=== PATIENT | female | born 1975 | race Caucasian/White ===

== ENCOUNTER 2021-09-06 09:28 | Observation (INO) | payer OTHER ==
[~2021-09-06] VITALS: Ht 170.2 cm; Wt 91.0 kg
[2021-09-06 09:20] VITALS: BP 138/85
--- NOTE | 2021-09-06 10:02 | PDOC2 ---
ANISH LOPEZ BOUNTY TRAPPER 09/06/21 1002: CONSULT Date of Consult Date of Consult DATE: 09/06/21 TIME: 09:58 Reason for Consult Reason for Consult: appendicitis Referring Physician Referring Physician: ER Identification/Chief Complaint Chief Complaint abdominal pain Source Source: Chart review, Patient History of Present Illness Reason for Visit: Admitted with RLQ abdominal pain since Friday. Associated nausea, emesis and diarrhea. Some improvement in pain with medication Past Medical History Cardiovascular: HTN, Hyperlipidemia Pulmonary: COPD Psych: Anxiety, Depression Past Surgical History Past Surgical History: Cholecystectomy, Hysterectomy Family History Family History: Other (noncontributuroy to current illness ) Social History No ALCOHOL: other (frequently weekly intake ) Allergies Allergies: Coded Allergies: acetaminophen (Verified Adverse Reaction, Intermediate, Nausea and Vomiting, 09/06/21) ibuprofen (Verified Adverse Reaction, Intermediate, Nausea and Vomiting, 09/06/21) ROS General: No: Chills, Fatigue PSYCHOLOGICAL ROS: No: Anxiety, Depression Eyes: No Blurry vision, No Double vision HEENT: No: Heacaches, Sore Throat Hematological and Lymphatic: No: Bleeding Problems, Blood Clots Respiratory: No: Cough, SOB with excertion Cardiovascular: No Chest Pain, No Palpitations Gastrointestinal: Yes Other (see hpi) Genitourinary: No Dysuria, No Hematuria Musculoskeletal: No Joint Pain, No Muscle Pain Neurological: No Impaired Coord/balance, No Numbness/Tingling Skin: No Pruritus, No Rash Physical Exam General: Alert, Oriented X3, Cooperative HEENT: Atraumatic, PERRLA Lungs: Clear to auscultation, Normal air movement Heart: Regular rate, Normal S1, Normal S2 Abdomen: Soft, Other (mild ttp RLQ) Extremities: No clubbing, No cyanosis Skin: No rashes, No breakdown Neuro: Normal gait, Normal speech Psych/Mental Status: Mental status NL, Mood NL MUSCULOSKELETAL: No deformity, No swelling Assessment/Plan Assessment/Plan acute appendicitis plan JOHN Hector MD 09/06/21 1139: CONSULT Assessment/Plan Assessment/Plan The patient was seen and evaluated by myself; the patient is a 45-year-old female who reported to the emergency department at [facility] due to abdominal pain. The pain began 2 nights ago and was located in the right lower quadrant. The pain has remained persistent since then. She describes the pain as sharp and nonradiating. She has associated nausea and vomiting. She denies any fever chills or change in bowel or bladder function. The emergency room evaluation was consistent with acute appendicitis. PMH/PSH/ROS/SH as above; exam: alert, oriented, no distress, lungs clear, heart RR and R, abdomen obese, soft, tender with palpation in RLQ, ext neg for edema, no deformities; A/P) RLQ pain, suspect appendicitis, plan to OR for appendectomy ANISH LOPEZ APRN September 06, 2021 10:02 JOHN PENA MD September 06, 2021 11:39
[2021-09-06] MEDS ORDERED: PROCHLORPERAZINE 10 MG/2 ML VIAL. IVP PRN (10:45)
[2021-09-06] MEDS ORDERED: HYDROmorphone 2 MG/ML INJ. IVP PRN (10:45)
[2021-09-06] MEDS ORDERED: fentaNYL PF VIAL 100 MCG/2 ML VIAL IVP PRN ×2 (10:45)
[2021-09-06] MEDS ORDERED: ONDANSETRON PF 4 MG/2 ML VIAL. ONE (10:51)
[2021-09-06] MEDS ORDERED: SEVOFLURANE 61 TO 120 MINUTES. IH ONE (10:51)
[2021-09-06] MEDS ORDERED: LIDOCAINE 2% PF 5 ML VIAL. ONE (10:51)
[2021-09-06] MEDS ORDERED: DEXAMETHASONE SOD PHOS 4 MG/ML VIAL ONE (10:51)
[2021-09-06] MEDS ORDERED: PROPOFOL 10 MG/ML (20ML) VIAL. IV ONE (10:51)
[2021-09-06] MEDS ORDERED: MIDAZOLAM HCL/PF 2 MG/2 ML VIAL. ONE (10:52)
[2021-09-06] MEDS ORDERED: ROCURONIUM 50 MG/5 ML VIAL. ONE (10:52)
[2021-09-06] MEDS ORDERED: SCOPOLAMINE 1.5MG PATCH. TD ONE (11:00)
[2021-09-06] MEDS ORDERED: ALBUTEROL SULFATE 2.5 MG/3 ML NEBU. NEB ONE (11:00)
[2021-09-06] MEDS: IV RINGERS,LACTATED 1000ML 1,000 ML IV SCH ×2 (11:06→13:40)
[2021-09-06] MEDS ORDERED: SUCCINYLCHOLINE 200 MG/10 ML VIAL. ONE (11:24)
[2021-09-06] MEDS ORDERED: BUPIVACAINE-EPI 0.5% 30 ML VIAL KIT. ONE (11:49)
[2021-09-06] MEDS ORDERED: PHENYLEPHRINE in 0.9% NACL PF 1 MG/10 ML SYRINGE. IV ONE (11:53)
[2021-09-06] MEDS ORDERED: fentaNYL PF VIAL 100 MCG/2 ML VIAL ONE (12:11)
[2021-09-06] MEDS ORDERED: INSULIN LISPRO 100 UNIT/ML 3ML VIAL for OP,RR ONLY. SQ PRN (12:15)
[2021-09-06] MEDS ORDERED: NEOSTIGMINE METHYLSULFATE 5 MG/5 ML SYRINGE. ONE (12:20)
--- NOTE | 2021-09-06 12:34 | PDOC4 ---
Operative Note Operative Note Preoperative Diagnosis: Acute Appendicitis Postoperative Diagnosis: Same Procedure: Laparoscopic appendectomy Surgeon: Tarik Anesthesia: Gen. EBL: 10 mL Specimen: Appendix to pathology Drains: None Complications: None Indication: The patient is a 45 year old female who reported to the emergency department with abdominal pain. The evaluation is consistent with acute appendicitis. The patient was offered surgical treatment with a laparoscopic appendectomy. The risks of surgery were discussed which include bleeding, infection, visceral injury, pain, anesthetic risk, potential need for additional surgery or procedure. The patient understands and would like to proceed. Description: The patient was taken to the operating room and placed supine on the operating table. Gen. anesthesia was performed. The abdomen was prepped with ChloraPrep and draped in a standard surgical manner. A supraumbilical incision was made through which a veress needle was inserted and a pneumoperitoneum was created. A visualized 5 mm trocar was inserted and the laparoscope was intr oduced. In the left lower quadrant a 5 mm trocar was inserted. In the suprapubic region a 12 mm trocar was inserted. The appendix was identified and appeared inflamed consistent with acute appendicitis. There was no clear evidence of perforation or periappendiceal abscess. The mesoappendix was bluntly from the appendix. The mesoappendix was controlled using several clips and it was divided. The appendix was then amputated off the cecum using an Endo GRISELDA 45 stapling device. The appendix was then placed in an endoscopic bag and extracted at the suprapubic incision site. The fascia there was closed with 0 Vicryl and infiltrated with half percent Marcaine with epinephrine. The RLQ was visualized and the staple line appeared well intact and hemostasis was good. No other abnormalities were identified grossly. The remaining ports were removed and the pneumoperitoneum was relieved. The skin at all incision sites was closed with 4-0 Monocryl. Steri-Strips and dressings were applied. The patient tolerated the procedure well and was sent to the recovery room in stable condition. At the end of the case all counts were correct. JOHN PENA MD September 06, 2021 12:34
[2021-09-06] MEDS ORDERED: oxyCODONE/APAP 5/325 1 TAB TABLET PO PRN ×2 (12:45)
[2021-09-06] MEDS: MORPHINE SULFATE 2 MG/ML INJ. IVP PRN ×3 (13:21→22:40)
[2021-09-06 15:00] VITALS: BP 138/83
[2021-09-06] MEDS ORDERED: DIPH25CA58 PO (15:00)
[2021-09-06] MEDS ORDERED: CHOL4POW11 PO (15:00)
[2021-09-06] MEDS ORDERED: ALPR1TAB6 PO (15:00)
[2021-09-06] MEDS ORDERED: LANS30CA PO (15:00)
[2021-09-06] MEDS ORDERED: QUET400T7 PO (15:00)
[2021-09-06] MEDS ORDERED: BUDE10.26 IH (15:00)
[2021-09-06] MEDS ORDERED: HYDR-2769 PO (15:00)
[2021-09-06] MEDS ORDERED: TIZA-75 PO (15:00)
[2021-09-06] MEDS ORDERED: NICO1PAT25 TP (15:00)
[2021-09-06] MEDS ORDERED: GABA-689 PO (15:00)
[2021-09-06] MEDS ORDERED: LORA10TA3 PO (15:00)
[2021-09-06] MEDS ORDERED: ALBU2.5V14 NEB (15:00)
[2021-09-06] MEDS ORDERED: HYDR25TA PO (15:00)
[2021-09-06] MEDS ORDERED: IPRA3AMP29 NEB (15:00)
[2021-09-06] MEDS ORDERED: ONDANSETRON PF 4 MG/2 ML VIAL. IVP PRN (16:00)
[2021-09-06] MEDS ORDERED: DEXTROSE 50% 25 GM / 50ML DISP.SYRIN. IV PRN (16:15)
[2021-09-06] MEDS: IV DEXTROSE 5 %-0.45 % NACL 1,000 ML IV SCH (16:40)
[2021-09-06] MEDS: INSULIN LISPRO 300 UNITS/3 ML VIAL. SQ SCH (17:00)
[2021-09-06 19:00] VITALS: BP 121/66
[2021-09-06 23:00] VITALS: BP 121/69
[2021-09-07] MEDS: IV DEXTROSE 5 %-0.45 % NACL 1,000 ML IV SCH (01:13)
--- NOTE | 2021-09-07 01:30 | NUR ---
2 bottles of pills were taken from patient's room, she had them in her backpack. One was a bottle of "allergy relief" which was placed in patient's bin with a patient label, and the other was sent to pharmacy to be identified as it was a large bottle of mixed pills.
[2021-09-07 03:00] VITALS: BP 129/69
[2021-09-07 07:00] VITALS: BP 118/56
[2021-09-07] MEDS: INSULIN LISPRO 300 UNITS/3 ML VIAL. SQ SCH (08:00)
--- NOTE | 2021-09-07 09:31 | PDOC ---
SURGICAL PROGRESS NOTE DATE: 09/07/21 TIME: 09:30 Subjective tolerating clears sore but overall improved Vital Signs Vital Signs Date Time Temp Pulse Resp B/P (MAP) Pulse Ox O2 Delivery O2 Flow Rate FiO2 09/07/21 08:00 Room Air 09/07/21 07:00 97.8 76 18 118/56 (76) 100 97.8 09/06/21 23:00 2.0 I&O Intake and Output 09/07/21 07:00 Intake Total 1000 ml Output Total 140 ml Balance 860 ml Intake IV Total 1000 ml Output Urine Total 130 ml Estimated Blood Loss 10 ml # Voids 4 General: Alert, Oriented X3, Cooperative Abdomen: Soft, Other (lap dressings dry) Labs Laboratory Tests Test 09/06/21 09:47 09/06/21 11:04 09/06/21 12:48 09/06/21 14:14 Glucose (Fingerstick) 107 mg/dL (70-99) 96 mg/dL (70-99) 125 mg/dL (70-99) 136 mg/dL (70-99) Test 09/06/21 21:08 09/07/21 03:39 09/07/21 09:22 Glucose (Fingerstick) 174 mg/dL (70-99) 139 mg/dL (70-99) 140 mg/dL (70-99) Laboratory Tests Test 09/06/21 09:47 09/06/21 11:04 09/06/21 12:48 09/06/21 14:14 Glucose (Fingerstick) 107 mg/dL (70-99) 96 mg/dL (70-99) 125 mg/dL (70-99) 136 mg/dL (70-99) Test 09/06/21 21:08 09/07/21 03:39 09/07/21 09:22 Glucose (Fingerstick) 174 mg/dL (70-99) 139 mg/dL (70-99) 140 mg/dL (70-99) Assessment/Plan s/p appy ok to dc home FU 2 weeks Justicifation of Admission Dx: Justifications for Admission: Justification of Admission Dx: Yes Comments: appendicitis ANISH LOPEZ VINYL CUTTER September 07, 2021 09:31
[2021-09-07] MEDS ORDERED: OXYC1TAB15 PO (09:35)
--- NOTE | 2021-09-07 09:48 | HP ---
DATE OF SERVICE: 09/07/2021 ADMIT DATE: 09/06/2021 HISTORY OF PRESENT ILLNESS: The patient is a 45-year-old female patient who presented to the Emergency Room of [facility] with a complaint of abdominal pain that started generalized and localized to the right lower quadrant. There is no history of bad food intake. No history of fever or chills. No history of trauma or recent travel. The patient has not had the flu vaccination and has not been vaccinated against COVID. She was extensively investigated in the Emergency Room of [facility], has had lab work as well as imaging studies. Her lab works were mostly unremarkable. Urinalysis was also unremarkable. Toxic screen was positive actually for cannabinoid. She did have CT scan of the abdomen and pelvis, which showed mild acute appendicitis, hepatomegaly and there is partially exophytic round soft tissue density in the left kidney that is incompletely characterized. Therefore, the patient was transferred to [facility], kept n.p.o., continued on IV fluid and pain medication, antiemetic and we consulted the surgical team. PAST MEDICAL HISTORY: Significant for type 2 diabetes mellitus, rheumatoid arthritis, chronic obstructive pulmonary disease, fibromyalgia, depression and anxiety. She is legally blind. PAST SURGICAL HISTORY: Significant for cholecystectomy, hysterectomy and she has also had a unilateral left oophorectomy. ALLERGIES: SHE IS ALLERGIC TO IBUPROFEN AND ACETAMINOPHEN. MEDICATIONS: She is currently on diphenhydramine 25 mg twice a day, loratadine 10 mg a day, ipratropium bromide, albuterol sulfate in 3 mL by nebulizer 4 times, albuterol sulfate 1 vial nebulizer every 6 hours, tizanidine 4 mg every 6 hours, nicotine patch, Nicoderm 14 mg transdermally once a day, cholestyramine 5 grams powder twice a day, hydrocodone/APAP 10/325 one tablet every 6 hours, gabapentin 400 mg 3 times a day, quetiapine fumarate 400 mg at bedtime, alprazolam 1 mg every 6 hours, hydroxyzine 25 mg once a day. She is on Symbicort 160/4.5 mcg inhaler 2 puffs twice a day and lansoprazole 30 mg once a day. FAMILY HISTORY: Noncontributory. SOCIAL HISTORY: She is , lives alone, has a caregiver. Her children are grown up. She continues to smoke. Does not drink alcohol or recreational drugs. She is blind. PHYSICAL EXAMINATION: GENERAL: On arrival to the Emergency Room, she looked well and was clearly in no apparent respiratory distress. No pallor, jaundice, cyanosis or thyromegaly. No jugular venous distention. No limb edema. VITAL SIGNS: Her heart rate was 73, blood pressure was 140/92, temperature was 97.8, respiratory rate was 18 and oxygen saturation was 97%. HEAD, EYES, EARS, NOSE AND THROAT: Normocephalic, atraumatic. NECK: Supple. HEART: Showed normal first and second heart sounds. No gallop or murmur. CHEST: Clear to auscultation. No crepitation or rhonchi. ABDOMEN: No guarding or rigidity. No organomegaly. All hernial orifice intact. Bowel sounds normal. Her abdomen was distended, soft. Tenderness mostly in the right lower quadrant. NEUROLOGIC: She is blind, but otherwise all other cranial nerves are intact. She moves extremities without difficulty. She ambulates without assistance or assistive devices while at home. She uses a cane when she goes outside. LABORATORY DATA: Her lab work on arrival to the Emergency Room showed a white cell count of 9.9, hemoglobin 14, hematocrit 40, MCV 93, and platelet count 279,000 with a manual differential of 57% polymorphs, 35% lymphocytes and 5% monocytes. Serum sodium 136, potassium 4.2, chloride 100, bicarbonate 26, anion gap of 10, BUN 16, creatinine 0.8. Estimated GFR 77 mL per minute. Her glucose 120, calcium 9.3. Total bilirubin, AST, ALT, alkaline phosphatase were normal. Her CK was 91. Total protein 7.7, albumin was 4.7. Amylase 45, lipase 173. Her prothrombin time, INR and APTT normal. Urinalysis essentially unremarkable and toxic screen was positive for cannabinoids. Her influenza A and B were negative. Her coronavirus by rapid antigen testing and by PCR both negative. CT scan of the abdomen and pelvis showed that she has mild acute appendicitis. ASSESSMENT AND PLAN: The patient was admitted to [facility]. She was kept n.p.o. She did receive IV Zosyn while in the Emergency Room of [facility]. However, she is afebrile and her white cell count was normal and according to the surgical team, there was no evidence of any peritonitis. [facility] DR: Savanna TID: [id number]
[2021-09-07 11:00] VITALS: BP 115/68
--- NOTE | 2021-09-07 12:08 | NUR ---
Discharge Note: JUAN JOSE OMNTERROSO Discharge instructions and discharge home medications reviewed with Patient and a copy given. All questions have been answered and understanding verbalized. The following instructions and handouts were given: information about medications, activity, surgical incision care, follow up appointments, diet. Discontinued lines and drains: IV line in left upper arm removed, catheter tip intact. Patient discharged to home with self care with family member, wheelchair used for mobility to discharge vehicle.
--- NOTE | 2021-09-11 07:46 | PATHOLOGY ---
[facility] Accession Number: [id number] . 01 Material submitted: . appendix - APPENDIX . 01 Clinical history: . LAP APPY ACUTE APPENDICITIS . 02 Diagnosis: Appendix, laparoscopic appendectomy: - Acute and chronic appendicitis with focal serosal exudate. - Diverticulum of distal appendiceal tip. . (JPM:mm; 09/10/2021) [facility] 09/10/2021 1135 Local . 02 Comment: There is no evidence of rupture. . (JPM:mml; 09/10/2021) . 02 Electronically signed: . Britton Field MD, Pathologist NPI- [id number] . 01 Gross description: . Fixative: Formalin Labeled: Appendix Perforation: Intact Appendix size: 5.5 cm in length by up to 1.1 cm in diameter Mesoappendix: [place], dusky and focally hemorrhagic Proximal margin: Inked green Serosa: [place], dusky and focally hemorrhagic with minimal overlying fibrinous exudate Mucosa: [place], dusky and unremarkable Luminal diameter: Up to 0.2 cm Wall thickness: Ranges from 0.3 cm to 0.6 cm Lesions/abnormalities: None . A1-A3: Judicial Assistant sections of appendix to include the proximal margin (submitted en face) and entirety of the serially sectioned lengthwise distal tip. ([place]; 09/07/2021) DKA/DKA 09/07/2021 1112 Local . 02 Pathologist provided ICD-10: K35.80 . 02 CPT . 687330 Specimen Comment: A courtesy copy of this report has been sent to [phone], [phone] Specimen Comment: [id number] Specimen Comment: Report sent to / DR PENA Performed at: 01 [facility] [address], [place], [place] [id number] MD Ming Reyez MD Phone: [phone] Performed at: 02 [facility] [address], [place] [id number] MD Britton Field MD Phone: [phone]
== END 2021-09-07 12:08 | disposition home or self-care (01) ==
LOC: 4 NORTH 09:28
PROVIDERS: ADMIT Internal Medicine; ATTEND Internal Medicine
DX: K35.80 Unspecified acute appendicitis (principal); R10.31 Right lower quadrant pain; E11.9 Type 2 diabetes mellitus without complications; I10 Essential (primary) hypertension; J44.9 Chronic obstructive pulmonary disease, unspecified; M06.9 Rheumatoid arthritis, unspecified; M79.7 Fibromyalgia; H54.8 Legal blindness, as defined in USA; F32.9 Major depressive disorder, single episode, unspecified; F41.9 Anxiety disorder, unspecified; E78.5 Hyperlipidemia, unspecified; F17.200 Nicotine dependence, unspecified, uncomplicated; Z28.310 Unvaccinated for COVID-19; Z90.710 Acquired absence of both cervix and uterus; Z90.721 Acquired absence of ovaries, unilateral; Z90.49 Acquired absence of other specified parts of digestive tract; Z79.899 Other long term (current) drug therapy; Z98.890 Other specified postprocedural states
CPT/HCPCS: 44970; 82962; 94640; 96374; 96375; A4314; A4364; A4930; A6402; G0378; G0379; J0330; J1100; J2250; J2270; J2370; J2405; J2704; J2710; J7042; J7120; J7613; A4452; J3010